=== PATIENT | female | born 1965 | race Caucasian/White ===

== ENCOUNTER 2016-03-07 07:50 | Emergency (ER) | payer MEDICARE ==
--- NOTE | 2016-03-07 10:05 | ER Document Report ---
ED General - General Chief Complaint: Ear Pain Stated Complaint: CONGESTION Time seen by provider: 10:00 Mode of Arrival: Ambulatory Information source: Patient Notes: 50-year-old female complains of a one-week history of cough productive of yellow sputum sensation of fullness in both ears occasional posttussive nausea and sharp anterior chest pain with coughing. She denies fever, chills, vomiting , diarrhea, abdominal pain, back pain, or pain numbness weakness to extremities. She reports last night while coughing she suddenly had a sensation of whistling in her right ear and has increased pain and a sensation of numbness to the right face and head. She denies visual disturbances or syncope Physical Exam: General: Alert, appears well. HEENT: Normocephalic. Atraumatic. PERRLA. Extraocular movements intact. Tympanic membranes and canal on the left are clear. On the right there is minimal cerumen in the canal and tympanic membrane is red but intact with good landmarks. No maxillary or frontal sinus tenderness to palpation Oropharynx clear. Neck: Supple. Non-tender. No adenopathy no JVD Respiratory: No respiratory distress. Few rhonchi bilaterally breath sounds equal good aeration no accessory muscle use Cardiovascular: Regular rate and rhythm. Abdominal: Normal Inspection. Soft, non-tender. No distension. Normal Bowel Sounds. Back: Non-tender. No deformity or step off. Extremities: Moves all four extremities. Upper extremities: Normal inspection. Non-tender. Normal color. Normal ROM. Normal temperature. Lower extremities: Normal inspection. Non-tender. No edema. Normal color. Normal ROM. Normal temperature. Neurological: Cranial nerves II-XII grossly intact bilaterally. Strength 5/5 throughout. Sensation intact to light touch. Normal cognition. AAOx4. Normal speech. Psychological: Normal affect. Normal Mood. Skin: Warm. Dry. Normal color. TRAVEL OUTSIDE OF THE [place] IN LAST 30 DAYS: No - Related Data Allergies/Adverse Reactions: Sulfa (Sulfonamide Antibiotics) Adverse Reaction (Severe, Verified 03/07/16 08: 07) VOMITING Past Medical History - Social History Smoking Status: Never Smoker Chew tobacco use (# tins/day): No Frequency of alcohol use: None Drug Abuse: None Family History: CAD Patient has suicidal ideation: No Patient has homicidal ideation: No - Past Medical History Cardiac Medical History: Reports: Hx Hypertension Denies: Hx Heart Attack Pulmonary Medical History: Denies: Hx Asthma, Hx Tuberculosis Neurological Medical History: Denies: Hx Cerebrovascular Accident, Hx Seizures GI Medical History: Reports: Hx Gastroesophageal Reflux Disease. Denies: Hx Hepatitis, Hx Hiatal Hernia, Hx Ulcer Musculoskeltal Medical History: Reports Hx Fibromyalgia Psychiatric Medical History: Reports: Hx Depression Infectious Medical History: Denies: Hx Hepatitis Past Surgical History: Reports: Hx Orthopedic Surgery - right foot x 2, left hand. Denies: Hx Mastectomy, Hx Open Heart Surgery, Hx Pacemaker - Immunizations Hx Diphtheria, Pertussis, Tetanus Vaccination: No Review of Systems - Review of Systems Constitutional: See HPI EENT: See HPI Cardiovascular: See HPI Respiratory: See HPI Gastrointestinal: See HPI Genitourinary: denies: Burning, Dysuria Musculoskeletal: denies: Back pain Skin: denies: Rash Hematologic/Lymphatic: denies: Swollen glands Neurological/Psychological: denies: Weakness, Numbness Physical Exam - Vital signs Vitals: Temp Pulse Resp BP Pulse Ox 98.1 F 92 20 152/82 H 98 03/07/16 08:05 03/07/16 08:05 03/07/16 08:05 03/07/16 08:05 03/07/16 08:05 Course - Re-evaluation Re-evalutation: 03/07/16 10:03 Patient presents with symptoms consistent with bronchitis. Patient has erythema in her ear but drum is intact cannot exclude the possibility of infection most likely viral. However given the length of her bronchitis symptoms believe this warrants antibiotic treatment - Vital Signs Vital signs: Temp Pulse Resp BP Pulse Ox 98.1 F 92 20 152/82 H 98 03/07/16 08:05 03/07/16 08:05 03/07/16 08:05 03/07/16 08:05 03/07/16 08:05 Discharge - Discharge Clinical Impression: Bronchitis, Otitis media Condition: Stable Disposition: HOME, SELF-CARE Additional Instructions: Otitis Media You have a middle ear infection (otitis media). This is usually a complication of a cold or sore throat. The middle ear cavity becomes filled with infection. Pressure and stretching of the ear drum cause pain. Antibiotics are required. A 10 day course is usually prescribed. A decongestant may be recommended if you have a "runny nose." You may need anesthetic drops or other pain medication. A follow-up exam may be recommended to make sure the infection has completely cleared. If the ear begins to drain, it means the ear drum has ruptured. This will usually heal spontaneously. However, it means you should keep the ear dry until re-examined by a doctor. Call the physician or return for examination at once if there is severe headache, stiff neck, confusion, increasing fever, or dizziness. You should improve significantly within two days. If you're not better, call the doctor. Bronchitis You have acute bronchitis. This disease is an infection or inflammation of the air passageways in your lungs. Symptoms usually include cough, low grade fever, shortness of breath, and wheezing. The cough usually persists for a couple of weeks. Most cases of bronchitis get better without antibiotics. We prescribe antibiotics when we believe bacteria are damaging your airways, or if there's high risk the bronchitis will worsen into pneumonia. Increase your fluid intake. A cool mist humidifier may make your lungs more comfortable. An expectorant (cough medicine that loosens phlegm) can help. If you smoke, STOP!!! Recovery from bronchitis can be somewhat slow, but you should see improvement within a day or two. Repeated episodes of bronchitis may result in lung damage -- for example, chronic bronchitis, recurrent pneumonias, or emphysema. Call the doctor if you develop increasing fever, shortness of breath, chest pain, bloody sputum, or otherwise worsen. If you have not improved at all after several days, contact the physician. Prescriptions: Azithromycin [Zithromax 250 mg Tablet] 250 mg PO ASDIR PRN #6 tablet PRN Reason:
[2016-03-07 10:20] VITALS: BP 140/87
== END 2016-03-07 10:18 | disposition home or self-care (01) ==
LOC: ER 07:50
DX: H66.90 Otitis media, unspecified, unspecified ear (principal); J40 Bronchitis, not specified as acute or chronic; R05 Cough; R20.0 Anesthesia of skin; R07.89 Other chest pain; R51 Headache; I10 Essential (primary) hypertension
CPT/HCPCS: 99282